=== PATIENT | female | born 1965 | race Hispanic/Latino ===

== ENCOUNTER → 2025-06-07 | Outpatient (REF) | payer OTHER ==
[2025-04-27 10:34] LABS: EST GLOMERULAR FILTRATION RATE 98.0 ML/MIN (>=60)
[~2025-06-07] MED LIST: IOPAMIDOL 370 MG/ML 100 ML INFUS..BTL INJ ONE; METOPROLOL TARTRATE INJ 1 MG/ML VIAL ONE; NITROGLYCERIN 0.4 MG SUBL ONE; SODIUM CHLORIDE 0.9% 0 ML ONE; SODIUM CHLORIDE 0.9% 100 ML ONE
[2025-06-07 09:13] LABS: EST GLOMERULAR FILTRATION RATE 99.0 ML/MIN (>=60)
== END ==
LOC: CT 04-27 09:00
PROVIDERS: ATTEND Internal Medicine Cardiovascular Disease
DX: R07.9 Chest pain, unspecified (principal)
CPT/HCPCS: 36415; 75574; 75580; 82565; 84520; J7050; Q9967